=== PATIENT | female | born 1950 | race Caucasian/White ===

== ENCOUNTER → 2017-05-10 | Outpatient (CLI) | payer MEDICARE ==
[~2017-05-10] MED LIST: ACET-1757 PO; ALBU8.5H3 INH; CALC1CAP8 PO; CIPR500T87 PO; CLIN300C93 PO; DOCU100T3 PO; ESTR2TAB PO; FEXO180T72 PO; FLUT15.88 NS; FLUT1DIS IH; FURO20TA3 PO; GABA300C10 PO; GUAI-103 PO; KETO5DRO EACHEYE; LEVO100T5 PO; LOSA1TAB16 PO; METH750T2 PO; MONT10TA9 PO; MULT-658 PO; OMEP-110 PO; OXYB5TAB7 PO; POTA10TA5 PO; ROSU20TA PO; SUCR1TAB PO; TRAV5DRO RIGHTEYE; TRIA10.8 NS
== END | disposition home or self-care (01) ==
LOC: CFH 10:18
PROVIDERS: ATTEND Internal Medicine
DX: N28.1 Cyst of kidney, acquired (principal)
CPT/HCPCS: 76770

== ENCOUNTER → 2017-11-22 | Outpatient (CLI) | payer MEDICARE ==
[~2017-11-22] MED LIST changes: -ALBU8.5H3 INH; +ALBU8.5H8 INH; +CLIN300C8 PO; -CLIN300C93 PO; -LOSA1TAB16 PO; +LOSA1TAB19 PO
== END | disposition home or self-care (01) ==
LOC: CFH 08:20
PROVIDERS: ATTEND Internal Medicine
DX: Z12.31 Encounter for screening mammogram for malignant neoplasm of breast (principal); N28.1 Cyst of kidney, acquired; M81.0 Age-related osteoporosis without current pathological fracture
CPT/HCPCS: 76770; 77067

== ENCOUNTER → 2019-03-19 | Outpatient (CLI) | payer MEDICARE ==
[~2019-03-19] MED LIST changes: -ROSU20TA PO; +ROSU20TA2 PO
== END | disposition home or self-care (01) ==
LOC: CVU 10:18
PROVIDERS: ATTEND Internal Medicine Cardiovascular Disease
DX: I11.9 Hypertensive heart disease without heart failure (principal); E78.5 Hyperlipidemia, unspecified
CPT/HCPCS: 93306

== ENCOUNTER 2019-04-03 07:20 | Outpatient (CLI) | payer MEDICARE | END 2019-04-03 23:59 | disposition home or self-care (01) | LOC: CFH 07:20 | DX: Z12.31 Encounter for screening mammogram for malignant neoplasm of breast (principal) | CPT/HCPCS: 77063; 77067 ==

== ENCOUNTER 2019-05-10 09:47 | Outpatient (CLI) | payer MEDICARE | END 2019-05-10 23:59 | disposition home or self-care (01) | LOC: CFH 09:47 | PROVIDERS: ATTEND Orthopaedic Surgery | DX: M17.12 Unilateral primary osteoarthritis, left knee (principal); M25.462 Effusion, left knee | CPT/HCPCS: 73723; A9585 ==

== ENCOUNTER 2020-02-04 09:23 | Outpatient (CLI) | payer MEDICARE ==
[~2020-02-04 09:23] MED LIST changes: -ACET-1757 PO; +ACET-2065 PO; +FLUT15.845 NS; -FLUT15.88 NS; +MONT10TA11 PO; -MONT10TA9 PO; +OXYB5TAB10 PO; -OXYB5TAB7 PO
[2020-02-04] MEDS ORDERED: GADOTERATE 10 MMOL/20 ML SYR ONE (10:30)
== END 2020-02-04 23:59 | disposition home or self-care (01) ==
LOC: CFH 09:23
PROVIDERS: ATTEND Internal Medicine Hematology & Oncology
DX: C85.91 Non-Hodgkin lymphoma, unspecified, lymph nodes of head, face, and neck (principal); G31.89 Other specified degenerative diseases of nervous system; Z85.72 Personal history of non-Hodgkin lymphomas
CPT/HCPCS: 70553; A9575

== ENCOUNTER → 2020-04-16 | Outpatient (CLI) | payer MEDICARE | END | disposition home or self-care (01) | LOC: CFH 08:55 | PROVIDERS: ATTEND Internal Medicine | DX: Z12.31 Encounter for screening mammogram for malignant neoplasm of breast (principal); M81.0 Age-related osteoporosis without current pathological fracture | CPT/HCPCS: 77067; 77080 ==

== ENCOUNTER 2020-04-28 08:00 | Outpatient (CLI) | payer MEDICARE ==
[2020-04-29] MEDS ORDERED: LEVO137T3 PO (13:51)
[2020-04-29] MEDS ORDERED: MIRA50TA PO (13:51)
[2020-04-29] MEDS ORDERED: LATA2.5D3 EACHEYE (13:51)
[2020-04-29] MEDS ORDERED: ACET-1600 PO (13:51)
== END 2020-04-28 23:59 | disposition home or self-care (01) ==
LOC: STAR 08:00
PROVIDERS: ATTEND Orthopaedic Surgery
DX: Z01.818 Encounter for other preprocedural examination (principal); Z11.59 Encounter for screening for other viral diseases; M84.375A Stress fracture, left foot, initial encounter for fracture
CPT/HCPCS: 36415; 87635

== ENCOUNTER 2020-05-02 07:30 | Day surgery (SDC) | payer MEDICARE ==
[2020-04-29 14:36] LABS: ALANINE AMINOTRANSFERASE 46 U/L (12-78); ALBUMIN 4.1 g/dL (3.4-5.0); ANION GAP 6 mmol/L (5-15); CALCIUM 9.6 mg/dL (8.5-10.1); CHLORIDE 109 mmol/L (98-107); CREATININE 0.93 mg/dL (0.55-1.02)
[2020-04-29 14:38] LABS: ALKALINE PHOSPHATASE 46 U/L (45-117); BILIRUBIN,TOTAL 0.4 mg/dL (0.2-1.0); TOTAL PROTEIN 7.2 g/dL (6.4-8.2)
[~2020-05-02] VITALS: Ht 161.3 cm; Wt 90.8 kg
[~2020-05-02 07:30] MED LIST changes: +ACET-1600 PO; +LATA2.5D3 EACHEYE; +LEVO137T3 PO; +MIRA50TA PO
[2020-05-02] MEDS ORDERED: LACTATED RINGERS 1,000 ML IV SCH (08:04)
[2020-05-02 08:07] VITALS: BP 129/83
[2020-05-02] MEDS ORDERED: FENTANYL PF 250 MCG/5ML ONE (08:21)
[2020-05-02] MEDS ORDERED: MIDAZOLAM 1 MG/ML, 2ML ONE (08:21)
[2020-05-02] MEDS ORDERED: CHLORHEXIDINE 15 ML UDC MM ONE (08:30)
[2020-05-02] MEDS ORDERED: LIDOCAINE 1%, 20ML ONE (09:01)
[2020-05-02] MEDS ORDERED: BUPIVACAINE/PF 0.5% ONE (09:01)
[2020-05-02] MEDS ORDERED: CEFAZOLIN 1,000 MG ONE (10:37)
[2020-05-02] MEDS ORDERED: DEXAMETHASONE 4 MG/ML, 1ML ONE (10:37)
[2020-05-02] MEDS ORDERED: PROPOFOL 10 MG/ML, 20ML ONE (10:37)
[2020-05-02] MEDS ORDERED: ONDANSETRON 2MG/ML, 2ML ONE (10:37)
[2020-05-02] MEDS ORDERED: FENTANYL PF 100 MCG/2ML ONE ×3 (11:06→11:40)
[2020-05-02] MEDS: FENTANYL PF 100 MCG/2ML IV PRN ×5 (11:07→11:45)
[2020-05-02] MEDS ORDERED: HYDROmorphone 1 MG/ML, 1ML INJ IVPush PRN (11:30)
[2020-05-02] MEDS ORDERED: HALOPERIDOL 5 MG/ML IV PRN (11:30)
[2020-05-02] MEDS ORDERED: MEPERIDINE/PF 25MG/0.5ML IVPush PRN (11:30)
[2020-05-02] MEDS ORDERED: DIPHENHYDRAMINE 50 MG/ML, 1ML IVPush PRN (11:30)
[2020-05-02] MEDS ORDERED: LABETALOL 5MG/ML, 20ML IV PRN (11:30)
[2020-05-02] MEDS ORDERED: PROMETHAZINE 25 MG/ML, 1ML IVPush PRN (11:30)
[2020-05-02] MEDS ORDERED: hydrALAzine 20 MG/ML, 1ML IV PRN (11:30)
[2020-05-02] MEDS ORDERED: OXYcodone 5 MG/5 ML ORAL.SOL UDC PO PRN (11:30)
[2020-05-02] MEDS ORDERED: OXYcodone 5 MG/5 ML ORAL.SOL UDC ONE (11:41)
[2020-05-02] MEDS ORDERED: HYDROmorphone 1 MG/ML, 1ML INJ ONE (11:53)
== END 2020-05-02 14:25 | disposition home or self-care (01) ==
LOC: OUT 07:30
PROVIDERS: ATTEND Orthopaedic Surgery
DX: M84.375K Stress fracture, left foot, subsequent encounter for fracture with nonunion (principal); X58.XXXA Exposure to other specified factors, initial encounter; J45.909 Unspecified asthma, uncomplicated; K21.9 Gastro-esophageal reflux disease without esophagitis; E78.5 Hyperlipidemia, unspecified; E03.9 Hypothyroidism, unspecified; I10 Essential (primary) hypertension; Z88.0 Allergy status to penicillin; Z88.1 Allergy status to other antibiotic agents; Z91.030 Bee allergy status; Z88.2 Allergy status to sulfonamides; Z88.8 Allergy status to other drugs, medicaments and biological substances; Z91.018 Allergy to other foods; Z79.899 Other long term (current) drug therapy; Z72.89 Other problems related to lifestyle; Z82.49 Family history of ischemic heart disease and other diseases of the circulatory system; Z82.5 Family history of asthma and other chronic lower respiratory diseases
CPT/HCPCS: 28322; 36415; 73660; 80053; 93005; C1713; J0690; J1100; J1170; J2250; J2405; J2704; J3010; J7120; 76000

== ENCOUNTER → 2021-04-21 | Outpatient (CLI) | payer MEDICARE ==
[~2021-04-21] MED LIST changes: -CLIN300C8 PO; +CLIN300C9 PO; -KETO5DRO EACHEYE; -LATA2.5D3 EACHEYE; +LATA2.5D4 EACHEYE; +METH-640 PO; -METH750T2 PO; -MONT10TA11 PO; +MONT10TA17 PO; +[UNRECOGNIZED DRUG - CODE] EACHEYE
== END | disposition home or self-care (01) ==
LOC: CFH 15:08
PROVIDERS: ATTEND Orthopaedic Surgery
DX: S32.2XXA Fracture of coccyx, initial encounter for closed fracture (principal); N28.1 Cyst of kidney, acquired; M25.552 Pain in left hip; R10.2 Pelvic and perineal pain; Y93.89 Activity, other specified; X58.XXXA Exposure to other specified factors, initial encounter; Y92.89 Other specified places as the place of occurrence of the external cause; Y99.8 Other external cause status
CPT/HCPCS: 72192

== ENCOUNTER 2021-04-29 11:46 | Inpatient (IN) | payer MEDICARE ==
[~2021-04-29] VITALS: Ht 160 cm; Wt 89.1 kg
--- NOTE | 2021-04-29 12:27 | NUR ---
PT TO ROOM FROM LOBBY
--- NOTE | 2021-04-29 12:38 | NUR ---
ASSUMED CARE OF PT. SHE IS HERE FOR N/V/D X1 DAY, BUT THIS MORNING SHE NOTICED BLOOD IN STOOL AND THAT IS WHAT BROUGHT HER HERE. SHE ALSO REPORTS A RASH SHE HAS HAD 4 WEEKS, AND GLF 2 WEEKS AGO FROM TRYING TO HELP HER UP OFF THE GROUND. PT IN HOSPITAL GOWN, PLACED ON MONITOR (CARDIAC, BP, SPO2), VSS NADN. CALL LIGHT BEDSIDE. Addendum: 04/29/21 at 1244 by JOSE MARIA ASSUMED CARE OF PT. SHE IS HERE FOR N/V/D X1 DAY, BUT THIS MORNING SHE NOTICED BLOOD IN STOOL AND THAT IS WHAT BROUGHT HER HERE. SHE ALSO REPORTS A RASH SHE HAS HAD 4 WEEKS, AND GLF 2 WEEKS AGO FROM TRYING TO HELP HER UP OFF THE GROUND. PT IN HOSPITAL GOWN, PLACED ON MONITOR (CARDIAC, BP, SPO2), VSS NADN. CALL LIGHT BEDSIDE. PT CURRENTLY DENIES N/V, SHE ATE TOAST THIS MORNING AND WAS ABLE TO GET IT DOWN. STILL DENYING NAUSEA. LAST EMESIS LAST NIGHT AND DIARHEA HAS IMPROVED.
--- NOTE | 2021-04-29 12:40 | NUR ---
PT DENIES N/V AT THIS TIME, LAST EMESIS WAS LAST NIGHT. SMALL DIARHEA THIS MORNING, BUT SHE TOOK IMMODIUM LAST NIGHT. PT WAS ABLE TO EAT TOAST AND KEEP IT DOWN THIS MORNING.
[2021-04-29] MEDS ORDERED: SODIUM CHLORIDE FLUSH 10ML SYR IVF ONE (13:30)
[2021-04-29] MEDS ORDERED: SODIUM CHLORIDE 0.9% 1,000ML IVBOLUS ONE (13:30)
[2021-04-29 13:31] LABS: BASOPHILS % (AUTO) 1 % (0-1); EOSINOPHILS % (AUTO) 1 % (1-7); LYMPHOCYTES % (AUTO) 14 % (22-44); MEAN CORPUSCULAR HEMOGLOBIN 31.3 pg (27.0-34.8); MEAN CORPUSCULAR HGB CONC 33.5 g/dL (32.4-35.8); MEAN PLATELET VOLUME 7.9 fL (7.4-10.4); MONOCYTES % (AUTO) 9 % (2-9); NEUTROPHILS % (AUTO) 76 % (42-75); PLATELET COUNT 352 x10^3/uL (130-400); RED BLOOD COUNT 4.14 x10^6/uL (3.82-5.3); RED CELL DISTRIBUTION WIDTH 14.1 % (9.6-15.2)
--- NOTE | 2021-04-29 13:34 | NUR ---
TASK RN: EV[facility] TORRES COLLECTED-WALKED TO LAB PIV PLACED TO WHICH 1L NS ADMINISTERED PER EMAR
[2021-04-29 13:38] LABS: ALANINE AMINOTRANSFERASE 26 U/L (12-78); ALBUMIN 3.6 g/dL (3.4-5.0); ANION GAP 7 mmol/L (5-15); CALCIUM 9.4 mg/dL (8.5-10.1); CHLORIDE 106 mmol/L (98-107); INTERNATIONAL NORMALIZED RATIO 0.99 (0.93-1.1); PROTHROMBIN TIME 10.6 Seconds (9.6-11.5)
[2021-04-29 13:43] LABS: ALKALINE PHOSPHATASE 58 U/L (45-117); BILIRUBIN,TOTAL 0.5 mg/dL (0.2-1.0); CREATININE 0.82 mg/dL (0.55-1.02); TOTAL PROTEIN 6.9 g/dL (6.4-8.2); TROPONIN I < 0.015 ng/mL (0.000-0.045)
--- NOTE | 2021-04-29 13:55 | NUR ---
UA COLLECTED BY TASK RN, SENT TO LAB. REPORTED PT IS UNSTEADY ON HER FEET WHEN AMBULATING TO RESTROOM. PIV STARTED. CHECKED ON PT, IV BOLUS STILL RUNNING, DENIES ANY NEEDS. CHRISTOPHER SESAY. CALL LIGHT W/IN REACH.
[2021-04-29 13:59] LABS: MICROSCOPIC INDICATED
--- NOTE | 2021-04-29 15:01 | NUR ---
PT STRAIGHT CATH'D W/ STERILE PROCEDURE, PT TOLERATED WELL. SAMPLE WALKED DOWN TO LAB. VSS, NADN, CALL LIGHT W/IN REACH.
[2021-04-29 15:31] LABS: MICROSCOPIC AUTO
[2021-04-29] MEDS ORDERED: OMNIPAQUE 350 MG/ML, 100ML BOTTLE ONE (15:32)
[2021-04-29] MEDS ORDERED: CEFTRIAXONE 1,000 MG in DEXTROSE 5% 50 ML IVPB ONE (16:00)
[2021-04-29] MEDS ORDERED: METRONIDAZOLE PMX 500MG/100ML 100 ML IVPB ONE (16:00)
[2021-04-29] MEDS ORDERED: METRONIDAZOLE PMX 500MG/100ML 100 ML ONE (16:27)
--- NOTE | 2021-04-29 16:32 | NUR ---
TASK RN TAKING PT TO RESTROOM SINCE SHE HAS UNSTEADY GAIT.
--- NOTE | 2021-04-29 16:51 | NUR ---
Per Dr. Del Real, no blood cultures needed prior to abx admin. Initiated meds per dec.
--- NOTE | 2021-04-29 16:59 | NUR ---
SB[facility] REPORT GIVEN TO [facility] ON MEDICAL, ANSWERED QUESTIONS. [facility] BEDSIDE AT THIS TIME.
[2021-04-29] MEDS ORDERED: ALBUTEROL SULFATE 2.5 MG/3 ML HHN PRN (17:30)
[2021-04-29] MEDS ORDERED: ONDANSETRON ODT 4 MG PO PRN (17:30)
[2021-04-29] MEDS ORDERED: ONDANSETRON 2MG/ML, 2ML IVPush PRN (17:30)
[2021-04-29] MEDS ORDERED: POTASSIUM CHLORIDE 20 MEQ TAB.ER.PRT PO ONE (18:00)
[2021-04-29] MEDS: LACTOBACILLUS CHEW TABLET PO SCH (18:30)
[2021-04-29] MEDS: LACTATED RINGERS 1,000 ML IV SCH (18:33)
[2021-04-29] MEDS ORDERED: ASPI-1026 PO (18:44)
[2021-04-29 19:41] VITALS: BP 135/67
[2021-04-29] MEDS: GABAPENTIN 300 MG CAPSULE PO SCH (21:00)
[2021-04-29] MEDS: CALCIUM/VITAMIN D3 250-125 TABLET PO SCH (21:00)
[2021-04-29] MEDS: METRONIDAZOLE PMX 500MG/100ML 100 ML IV SCH (21:00)
[2021-04-29] MEDS ORDERED: ALBUTEROL SULFATE 2.5 MG/3 ML HHN SCH (21:00)
[2021-04-29] MEDS: SUCRALFATE 1 GM TABLET PO SCH (21:01)
[2021-04-29] MEDS: ATORVASTATIN 80 MG TABLET PO SCH (21:01)
[2021-04-29] MEDS: NYSTATIN CRM 15GM TP SCH (21:01)
[2021-04-29] MEDS: ACETAMINOPHEN 325 MG TABLET PO PRN (21:24)
[2021-04-29] MEDS: CIPROFLOXACIN/PMX 400MG/200ML 200 ML IV SCH (22:25)
[2021-04-29] MEDS: LATANOPROST OPHTH 0.005%, 2.5ML EACHEYE SCH (22:26)
[2021-04-29] MEDS: BUDESONIDE 0.5 MG/2 ML INHA HHN SCH (22:45)
[2021-04-30] MEDS ORDERED: METRONIDAZOLE PMX 500MG/100ML 100 ML IV SCH
[2021-04-30 01:32] VITALS: BP 104/56
[2021-04-30] MEDS: METRONIDAZOLE PMX 500MG/100ML 100 ML IV SCH ×3 (04:46→20:35)
[2021-04-30] MEDS: OMEPRAZOLE 20 MG CAPSULE.DR PO SCH (05:57)
[2021-04-30] MEDS: LEVOTHYROXINE 137 MCG TABLET PO SCH (05:57)
[2021-04-30 06:06] LABS: BASOPHILS % (AUTO) 1 % (0-1); EOSINOPHILS % (AUTO) 1 % (1-7); LYMPHOCYTES % (AUTO) 13 % (22-44); MEAN CORPUSCULAR HEMOGLOBIN 31.4 pg (27.0-34.8); MEAN CORPUSCULAR HGB CONC 33.6 g/dL (32.4-35.8); MEAN PLATELET VOLUME 7.9 fL (7.4-10.4); MONOCYTES % (AUTO) 9 % (2-9); NEUTROPHILS % (AUTO) 76 % (42-75); PLATELET COUNT 312 x10^3/uL (130-400); RED BLOOD COUNT 3.94 x10^6/uL (3.82-5.3)
[2021-04-30 06:18] LABS: ANION GAP 5 mmol/L (5-15); CALCIUM 8.5 mg/dL (8.5-10.1); CHLORIDE 108 mmol/L (98-107); CHOLESTEROL, TOTAL 131 mg/dL (140-239); CREATININE 0.66 mg/dL (0.55-1.02)
[2021-04-30 06:28] LABS: CHOL/HDL RATIO 2.4; HDL CHOL % 41 % (28-40); HDL CHOLESTEROL (DIRECT) 54 mg/dL (40-60); LDL CHOLESTEROL,CALCULATED 52 mg/dL (54-169); TRIGLYCERIDES 127 mg/dL (50-200); VLDL CHOLESTEROL 25 mg/dL (0-25)
[2021-04-30 07:19] VITALS: BP 110/58
[2021-04-30] MEDS: NYSTATIN CRM 15GM TP SCH ×2 (07:41→20:35)
[2021-04-30] MEDS: CALCIUM/VITAMIN D3 250-125 TABLET PO SCH ×2 (07:42→20:35)
[2021-04-30] MEDS: Mirabegron** (Myrbetriq**) 50 MG) PO SCH (07:42)
[2021-04-30] MEDS: FLUTICASONE NASAL SPRAY 16GM NAS SCH (07:42)
[2021-04-30] MEDS: MULTIVITAMIN 1 TABLET PO SCH (07:43)
[2021-04-30] MEDS: CETIRIZINE 10 MG TABLET PO SCH (07:43)
[2021-04-30] MEDS: ESTRADIOL 2 MG TABLET PO SCH (07:43)
[2021-04-30] MEDS: POTASSIUM CHLORIDE 10 MEQ TABLET.ER PO SCH (07:43)
[2021-04-30] MEDS: SUCRALFATE 1 GM TABLET PO SCH ×4 (07:44→20:35)
[2021-04-30] MEDS: MONTELUKAST 10 MG TABLET PO SCH (07:44)
[2021-04-30] MEDS: LACTOBACILLUS CHEW TABLET PO SCH ×3 (07:44→16:07)
[2021-04-30] MEDS: GABAPENTIN 300 MG CAPSULE PO SCH ×3 (07:45→20:34)
[2021-04-30] MEDS: ALBUTEROL SULFATE 2.5 MG/3 ML HHN SCH ×3 (08:00→20:15)
[2021-04-30] MEDS: BUDESONIDE 0.5 MG/2 ML INHA HHN SCH ×2 (09:00→20:15)
[2021-04-30 10:29] LABS: CLOSTRIDIUM DIFFICILE ANTIGEN NEGATIVE; CLOSTRIDIUM DIFFICILE TOXIN NEGATIVE (Negative)
[2021-04-30] MEDS: LACTATED RINGERS 1,000 ML IV SCH (10:40)
[2021-04-30] MEDS: CIPROFLOXACIN/PMX 400MG/200ML 200 ML IV SCH ×2 (11:27→22:11)
[2021-04-30] MEDS: ACETAMINOPHEN 325 MG TABLET PO PRN ×3 (11:27→22:10)
[2021-04-30 13:06] VITALS: BP 119/62
[2021-04-30 14:26] VITALS: BP 123/60
[2021-04-30 20:28] VITALS: BP 121/63
[2021-04-30] MEDS: ATORVASTATIN 80 MG TABLET PO SCH (20:35)
[2021-04-30] MEDS: LATANOPROST OPHTH 0.005%, 2.5ML EACHEYE SCH (20:36)
[2021-05-01 00:13] VITALS: BP 142/75
[2021-05-01] MEDS: ALBUTEROL SULFATE 2.5 MG/3 ML HHN SCH ×4 (03:10→20:30)
[2021-05-01] MEDS: ACETAMINOPHEN 325 MG TABLET PO PRN ×3 (04:09→20:59)
[2021-05-01] MEDS: LACTATED RINGERS 1,000 ML IV SCH (04:09)
[2021-05-01] MEDS: OMEPRAZOLE 20 MG CAPSULE.DR PO SCH (05:15)
[2021-05-01] MEDS: LEVOTHYROXINE 137 MCG TABLET PO SCH (05:15)
[2021-05-01] MEDS: METRONIDAZOLE PMX 500MG/100ML 100 ML IV SCH (05:15)
[2021-05-01] MEDS: BUDESONIDE 0.5 MG/2 ML INHA HHN SCH ×2 (06:46→20:30)
[2021-05-01 07:00] VITALS: BP 115/62
[2021-05-01] MEDS: SUCRALFATE 1 GM TABLET PO SCH ×4 (07:43→20:55)
[2021-05-01] MEDS: LACTOBACILLUS CHEW TABLET PO SCH ×3 (07:43→16:57)
[2021-05-01] MEDS: FLUTICASONE NASAL SPRAY 16GM NAS SCH (09:00)
[2021-05-01] MEDS: CALCIUM/VITAMIN D3 250-125 TABLET PO SCH ×2 (09:00→20:55)
[2021-05-01] MEDS: Mirabegron** (Myrbetriq**) 50 MG) PO SCH (09:00)
[2021-05-01] MEDS: metroNIDAZOLE 500 MG TABLET PO SCH ×2 (09:24→16:58)
[2021-05-01] MEDS: CIPROFLOXACIN 500 MG TABLET PO SCH ×2 (09:24→20:55)
[2021-05-01] MEDS: POTASSIUM CHLORIDE 10 MEQ TABLET.ER PO SCH (09:25)
[2021-05-01] MEDS: GABAPENTIN 300 MG CAPSULE PO SCH ×3 (09:25→20:55)
[2021-05-01] MEDS: MONTELUKAST 10 MG TABLET PO SCH (09:25)
[2021-05-01] MEDS: CETIRIZINE 10 MG TABLET PO SCH (09:27)
[2021-05-01] MEDS: MULTIVITAMIN 1 TABLET PO SCH (09:27)
[2021-05-01] MEDS: ESTRADIOL 2 MG TABLET PO SCH (09:28)
[2021-05-01] MEDS: NYSTATIN CRM 15GM TP SCH ×2 (12:05→20:55)
[2021-05-01 13:34] VITALS: BP 110/72
[2021-05-01 19:24] VITALS: BP 142/71
[2021-05-01] MEDS: ATORVASTATIN 80 MG TABLET PO SCH (20:55)
[2021-05-01] MEDS: LATANOPROST OPHTH 0.005%, 2.5ML EACHEYE SCH (20:56)
[2021-05-02 00:15] VITALS: BP 101/57
[2021-05-02] MEDS: metroNIDAZOLE 500 MG TABLET PO SCH ×3 (00:16→18:00)
[2021-05-02] MEDS: ACETAMINOPHEN 325 MG TABLET PO PRN ×4 (02:42→20:44)
[2021-05-02] MEDS: ALBUTEROL SULFATE 2.5 MG/3 ML HHN SCH ×2 (04:00→07:26)
[2021-05-02] MEDS: SUCRALFATE 1 GM TABLET PO SCH ×4 (05:59→20:38)
[2021-05-02] MEDS: LEVOTHYROXINE 137 MCG TABLET PO SCH (05:59)
[2021-05-02] MEDS: ASPIRIN 81 MG TABLET EC PO SCH (05:59)
[2021-05-02] MEDS: OMEPRAZOLE 20 MG CAPSULE.DR PO SCH (05:59)
[2021-05-02 07:05] VITALS: BP 113/69
[2021-05-02] MEDS: BUDESONIDE 0.5 MG/2 ML INHA HHN SCH ×2 (07:26→20:26)
[2021-05-02] MEDS: ALBUTEROL SULFATE 2.5 MG/3 ML NPPB SCH ×2 (08:00→09:00)
[2021-05-02] MEDS: LACTOBACILLUS CHEW TABLET PO SCH ×3 (08:00→17:00)
[2021-05-02] MEDS: CIPROFLOXACIN 500 MG TABLET PO SCH ×2 (08:37→20:38)
[2021-05-02] MEDS: POTASSIUM CHLORIDE 10 MEQ TABLET.ER PO SCH (08:38)
[2021-05-02] MEDS: MULTIVITAMIN 1 TABLET PO SCH (08:39)
[2021-05-02] MEDS: CETIRIZINE 10 MG TABLET PO SCH (08:39)
[2021-05-02] MEDS: MONTELUKAST 10 MG TABLET PO SCH (08:41)
[2021-05-02] MEDS: GABAPENTIN 300 MG CAPSULE PO SCH ×3 (08:41→20:38)
[2021-05-02] MEDS: CALCIUM/VITAMIN D3 250-125 TABLET PO SCH ×2 (08:42→20:39)
[2021-05-02] MEDS: FLUTICASONE NASAL SPRAY 16GM NAS SCH (08:46)
[2021-05-02] MEDS: ESTRADIOL 2 MG TABLET PO SCH (08:46)
[2021-05-02] MEDS: NYSTATIN CRM 15GM TP SCH ×2 (08:46→20:40)
[2021-05-02] MEDS: Mirabegron** (Myrbetriq**) 50 MG) PO SCH (09:00)
[2021-05-02] MEDS ORDERED: NYST15CR TP (10:18)
[2021-05-02] MEDS ORDERED: METR500T PO (10:18)
[2021-05-02] MEDS ORDERED: ACID1TAB7 PO (10:18)
[2021-05-02] MEDS ORDERED: ROSU20TA2 PO (10:18)
[2021-05-02] MEDS ORDERED: CIPR500T87 PO (10:18)
[2021-05-02 13:29] VITALS: BP 129/77
[2021-05-02] MEDS ORDERED: GLYCERIN ADULT SUPP PR ONE (15:00)
[2021-05-02] MEDS: ATORVASTATIN 80 MG TABLET PO SCH (20:38)
[2021-05-02] MEDS: LACTATED RINGERS 1,000 ML IV SCH (20:39)
[2021-05-02 21:50] VITALS: BP 134/80
[2021-05-02] MEDS: LATANOPROST OPHTH 0.005%, 2.5ML EACHEYE SCH (22:21)
[2021-05-03] MEDS: metroNIDAZOLE 500 MG TABLET PO SCH ×2 (00:18→09:25)
[2021-05-03 00:19] VITALS: BP 122/78
[2021-05-03] MEDS: ACETAMINOPHEN 325 MG TABLET PO PRN ×2 (01:32→05:58)
[2021-05-03] MEDS: LEVOTHYROXINE 137 MCG TABLET PO SCH (05:58)
[2021-05-03] MEDS: SUCRALFATE 1 GM TABLET PO SCH ×2 (05:58→12:05)
[2021-05-03] MEDS: ASPIRIN 81 MG TABLET EC PO SCH (05:58)
[2021-05-03] MEDS: OMEPRAZOLE 20 MG CAPSULE.DR PO SCH (05:59)
[2021-05-03 07:31] VITALS: BP 138/84
[2021-05-03] MEDS: LACTOBACILLUS CHEW TABLET PO SCH ×2 (08:00→12:00)
[2021-05-03] MEDS: FLUTICASONE NASAL SPRAY 16GM NAS SCH (09:00)
[2021-05-03] MEDS: Mirabegron** (Myrbetriq**) 50 MG) PO SCH (09:00)
[2021-05-03] MEDS: CALCIUM/VITAMIN D3 250-125 TABLET PO SCH (09:00)
[2021-05-03] MEDS: NYSTATIN CRM 15GM TP SCH (09:00)
[2021-05-03] MEDS ORDERED: BISACODYL 10 MG SUPP PR SCH (09:00)
[2021-05-03] MEDS: ESTRADIOL 2 MG TABLET PO SCH (09:24)
[2021-05-03] MEDS: CETIRIZINE 10 MG TABLET PO SCH (09:24)
[2021-05-03] MEDS: POTASSIUM CHLORIDE 10 MEQ TABLET.ER PO SCH (09:25)
[2021-05-03] MEDS: MONTELUKAST 10 MG TABLET PO SCH (09:25)
[2021-05-03] MEDS: CIPROFLOXACIN 500 MG TABLET PO SCH (09:25)
[2021-05-03] MEDS: GABAPENTIN 300 MG CAPSULE PO SCH (09:25)
[2021-05-03] MEDS: MULTIVITAMIN 1 TABLET PO SCH (09:25)
[2021-05-03] MEDS: ALBUTEROL SULFATE 2.5 MG/3 ML NPPB SCH (09:50)
[2021-05-03] MEDS: BUDESONIDE 0.5 MG/2 ML INHA HHN SCH (09:50)
[2021-05-03] MEDS: LACTATED RINGERS 1,000 ML IV SCH (12:40)
== END 2021-05-03 13:28 | disposition home or self-care (01) | DRG 377 ==
LOC: ED 15:05 → EDIP 16:19 → 3N 17:10
PROVIDERS: ADMIT Internal Medicine; ATTEND Internal Medicine
PROC: 0T9B30Z Drainage of Bladder with Drainage Device, Percutaneous Approach (ICD-10-PCS; principal; 2021-04-29)
DX: K62.5 Hemorrhage of anus and rectum (principal); K55.039 Acute (reversible) ischemia of large intestine, extent unspecified; B37.89 Other sites of candidiasis; A09 Infectious gastroenteritis and colitis, unspecified; N39.0 Urinary tract infection, site not specified; E03.9 Hypothyroidism, unspecified; E66.9 Obesity, unspecified; E87.6 Hypokalemia; I10 Essential (primary) hypertension; J32.9 Chronic sinusitis, unspecified; J45.909 Unspecified asthma, uncomplicated; W18.39XA Other fall on same level, initial encounter; F07.81 Postconcussional syndrome; Z80.0 Family history of malignant neoplasm of digestive organs; Z82.49 Family history of ischemic heart disease and other diseases of the circulatory system; Z85.72 Personal history of non-Hodgkin lymphomas; Z85.828 Personal history of other malignant neoplasm of skin; Z88.0 Allergy status to penicillin; Z90.710 Acquired absence of both cervix and uterus; Z90.49 Acquired absence of other specified parts of digestive tract; Z88.2 Allergy status to sulfonamides; Z88.1 Allergy status to other antibiotic agents; Z91.018 Allergy to other foods; Y93.89 Activity, other specified; Y92.89 Other specified places as the place of occurrence of the external cause; Y99.8 Other external cause status; Z68.34 Body mass index [BMI] 34.0-34.9, adult
CPT/HCPCS: 36415; 74177; 80048; 80053; 80061; 81001; 83605; 83690; 83735; 84484; 85025; 85610; 87040; 87077; 87086; 87186; 87324; 89055; 93005; 94640; 96374; 96375; G0378; J0696; J0744; J7613; J7626; Q9967; J7030; J7120

== ENCOUNTER 2021-05-26 16:34 | Emergency (ER) | payer MEDICARE ==
[~2021-05-26] VITALS: Ht 160 cm; Wt 81.9 kg
[~2021-05-26 16:34] MED LIST changes: +ACID1TAB7 PO; +ASPI-1026 PO; +METR500T PO; +NYST15CR TP
--- NOTE | 2021-05-26 16:59 | NUR ---
PT BIB SON VIA POV. PT AMBULATED BACK TO ROOM. PER PT SHE HAD A MECHANICAL GROUND LEVEL FALL ON TUESDAY AND HAS WORSENING BACK PAIN. PT STATES SHE ALSO HAS BILAT KNEE PAIN. PT DENIES ANTICOAGS OR LOC. PT RESTING IN [facility], MONITORING IN PLACE, SON AT BEDSIDE, CHRISTOPHER AT THIS TIME, [facility].
[2021-05-26] MEDS ORDERED: OXYcodone/APAP 5/325MG TABLET ONE (17:27)
[2021-05-26] MEDS ORDERED: OXYcodone/APAP 5/325MG TABLET PO ONE (17:30)
--- NOTE | 2021-05-26 17:32 | NUR ---
PT TO CT VIA [facility].
--- NOTE | 2021-05-26 17:49 | NUR ---
PT BACK FROM CT VIA [facility], PT MEDICATED PER EMAR, MONITORING IN PLACE, NADN AT THIS TIME, [facility].
[2021-05-26 18:36] VITALS: BP 147/69
== END 2021-05-26 19:21 | disposition home or self-care (01) ==
LOC: ED 17:38
DX: S39.012A Strain of muscle, fascia and tendon of lower back, initial encounter (principal); S16.1XXA Strain of muscle, fascia and tendon at neck level, initial encounter; S09.90XA Unspecified injury of head, initial encounter; R07.89 Other chest pain; M25.562 Pain in left knee; M25.561 Pain in right knee; I10 Essential (primary) hypertension; J45.909 Unspecified asthma, uncomplicated; Z88.0 Allergy status to penicillin; Z88.1 Allergy status to other antibiotic agents; Z88.8 Allergy status to other drugs, medicaments and biological substances; W01.0XXA Fall on same level from slipping, tripping and stumbling without subsequent striking against object, initial encounter; Y93.89 Activity, other specified; Y92.009 Unspecified place in unspecified non-institutional (private) residence as the place of occurrence of the external cause; Y99.8 Other external cause status
CPT/HCPCS: 70450; 71045; 72110; 72125; 99285

== ENCOUNTER → 2021-07-14 | Outpatient (CLI) | payer MEDICARE ==
[2021-07-14 12:04] LABS: BASOPHILS % (AUTO) 1 % (0-1); EOSINOPHILS % (AUTO) 3 % (1-7); LYMPHOCYTES % (AUTO) 28 % (22-44); MEAN CORPUSCULAR HEMOGLOBIN 31.3 pg (27.0-34.8); MEAN CORPUSCULAR HGB CONC 33.9 g/dL (32.4-35.8); MEAN PLATELET VOLUME 7.7 fL (7.4-10.4); MONOCYTES % (AUTO) 9 % (2-9); NEUTROPHILS % (AUTO) 59 % (42-75); PLATELET COUNT 347 x10^3/uL (130-400); RED BLOOD COUNT 4.54 x10^6/uL (3.82-5.3); RED CELL DISTRIBUTION WIDTH 14.7 % (9.6-15.2)
[2021-07-14 12:17] LABS: ALBUMIN 3.8 g/dL (3.4-5.0); ANION GAP 4 mmol/L (5-15); CALCIUM 8.6 mg/dL (8.5-10.1); CHLORIDE 112 mmol/L (98-107)
[2021-07-14 12:21] LABS: MICROSCOPIC NOT IND
[2021-07-14 12:45] LABS: ALANINE AMINOTRANSFERASE 27 U/L (12-78); ALKALINE PHOSPHATASE 44 U/L (45-117); BILIRUBIN,TOTAL 0.5 mg/dL (0.2-1.0); CHOL/HDL RATIO 2.3; CHOLESTEROL, TOTAL 166 mg/dL (140-239); CREATININE 0.63 mg/dL (0.55-1.02); HDL CHOL % 44 % (28-40); HDL CHOLESTEROL (DIRECT) 73 mg/dL (40-60); LDL CHOLESTEROL,CALCULATED 75 mg/dL (54-169); TRIGLYCERIDES 92 mg/dL (50-200); VLDL CHOLESTEROL 18 mg/dL (0-25)
== END | disposition home or self-care (01) ==
LOC: LAB 11:36
PROVIDERS: ATTEND Internal Medicine
DX: C85.90 Non-Hodgkin lymphoma, unspecified, unspecified site (principal); E78.2 Mixed hyperlipidemia; G62.9 Polyneuropathy, unspecified; E03.9 Hypothyroidism, unspecified; M81.0 Age-related osteoporosis without current pathological fracture; I10 Essential (primary) hypertension; R00.2 Palpitations; N32.81 Overactive bladder; M79.7 Fibromyalgia; K21.9 Gastro-esophageal reflux disease without esophagitis
CPT/HCPCS: 36415; 80053; 80061; 81003; 82306; 82607; 84443; 85025